=== PATIENT | male | born 1960 | race Caucasian/White ===

== ENCOUNTER 2021-08-27 16:50 | Emergency (ER) | payer OTHER ==
[2021-08-27 17:59] LABS: HEMOGLOBIN 15.3 gm/dl (14.0-17.5); RED BLOOD COUNT 4.79 M/UL (4.20-5.50); WHITE BLOOD COUNT 7.4 K/UL (4.5-11.0)
[2021-08-27 18:22] LABS: BUN/CREATININE RATIO 19 (0-10)
[2021-08-27] MEDS ORDERED: HYDROCODON-ACE1 EAC4 PO (19:30)
== END 2021-08-27 20:05 | disposition home or self-care (01) ==
LOC: ER1 16:50
PROVIDERS: Nurse Practitioner
DX: S46.911A Strain of unspecified muscle, fascia and tendon at shoulder and upper arm level, right arm, initial encounter (principal); I10 Essential (primary) hypertension; X58.XXXA Exposure to other specified factors, initial encounter
CPT/HCPCS: 73030; 80053; 85025; 99283